=== PATIENT | female | born 1990 | race Two or more races ===

== ENCOUNTER 2020-12-08 16:02 | Emergency (ER) | payer OTHER ==
[~2020-12-08] VITALS: Ht 165.1 cm; Wt 56.7 kg
== END 2020-12-08 21:19 | disposition home or self-care (01) ==
LOC: ER 16:02
DX: O21.0 Mild hyperemesis gravidarum (principal); Z34.01 Encounter for supervision of normal first pregnancy, first trimester

== ENCOUNTER 2021-05-24 01:32 | Outpatient (CLI) | payer OTHER ==
[2021-05-24] MEDS ORDERED: PRENATAL CAPLE1 EAC1 PO (03:36)
== END 2021-05-24 10:29 | disposition home or self-care (01) ==
LOC: OBS/DEL 01:32
PROVIDERS: ATTEND Obstetrics & Gynecology
DX: O26.893 Other specified pregnancy related conditions, third trimester (principal); K29.70 Gastritis, unspecified, without bleeding; Z3A.39 39 weeks gestation of pregnancy

== ENCOUNTER 2021-05-25 11:05 | Inpatient (IN) | payer OTHER ==
[~2021-05-25] VITALS: Ht 165.1 cm; Wt 2.7 kg
[~2021-05-25 11:05] MED LIST: PRENATAL CAPLE1 EAC1 PO
== END 2021-05-27 16:53 | disposition home or self-care (01) | DRG 788 ==
LOC: LDR 11:05 → OB/GYN 11:05
PROVIDERS: ADMIT Obstetrics & Gynecology; ATTEND Obstetrics & Gynecology
PROC: 3E033VJ Introduction of Other Hormone into Peripheral Vein, Percutaneous Approach (ICD-10-PCS; 2021-05-25)
PROC: 4A1HXFZ Monitoring of Products of Conception, Cardiac Rhythm, External Approach (ICD-10-PCS; 2021-05-25)
PROC: 10D00Z1 Extraction of Products of Conception, Low, Open Approach (ICD-10-PCS; principal; 2021-05-25 13:15)
DX: O76 Abnormality in fetal heart rate and rhythm complicating labor and delivery (principal); O36.8330 Maternal care for abnormalities of the fetal heart rate or rhythm, third trimester, not applicable or unspecified; Z3A.39 39 weeks gestation of pregnancy; Z37.0 Single live birth